=== PATIENT | female | born 1965 | race Caucasian/White ===

== ENCOUNTER 2020-02-03 19:52 | Emergency (ER) | payer OTHER ==
[~2020-02-03] VITALS: Ht 165.1 cm; Wt 79.1 kg
[2020-02-03 20:01] VITALS: TEMP 98.3
[2020-02-03] MEDS ORDERED: PREDNISONE20 MG PO (20:15)
[2020-02-03] MEDS ORDERED: EPIPEN 2-PAK1 MG/ML IM (20:16)
[2020-02-03 22:05] VITALS: BP 113/77; PULSE 67
== END 2020-02-03 22:05 | disposition home or self-care (01) ==
LOC: COL.ER 19:52
DX: T78.40XA Allergy, unspecified, initial encounter (principal); Z88.0 Allergy status to penicillin
CPT/HCPCS: J1200; J2930; J7030